=== PATIENT | male | born 1965 | race Caucasian/White ===

== ENCOUNTER → 2020-01-01 | Outpatient (CLI) | payer OTHER ==
[~2020-01-01] MED LIST: 0.9 % SODIUM CHLORIDE 10 ML DISP.SYRIN. ID ONE; CONTRAST GIVEN. MC PRN; GADOTERATE 5 MMOL/10ML VIAL. INT ART ONE; IOHEXOL 300 MG/ML 50 ML VIAL. INT ART ONE; LIDOCAINE 1% Multi-Dose 20 ML VIAL. ID ONE
--- NOTE | 2020-01-01 17:07 | KCIC ---
STUDY: MRI arthrogram of the right shoulder INDICATION: Chronic right shoulder pain. COMPARISON: None. TECHNIQUE: Multiplanar MR imaging of the right shoulder performed after the intra-articular injection of contrast material. The injection portion of the procedure is detailed in a separate report. FINDINGS: Motion degraded study despite repeat imaging attempts. AC joint: Moderate hypertrophic AC joint arthrosis. The hypertrophied capsule minimally contacts the subjacent supraspinatus. No gadolinium-containing fluid within the subacromial subdeltoid bursa. Rotator cuff: Mild supraspinatus and infraspinatus tendinosis. No high-grade or full-thickness tear. Rotator cuff muscular bulk and signal is normal. Labrum: The superior labrum is intact. Nondisplaced tear at the anterior/inferior labrum. Faint signal elevation at the base of the posterior/inferior labrum favored not a tear but instead the chondrolabral interface. Long head biceps tendon: Intact and normally located. Cartilage: Chondrosis at the anterior/inferior aspect of the glenoid with subchondral cystic change, image 12 series 8. Bones: No acute fracture or aggressive marrow signal abnormality. Miscellaneous: Unremarkable axillary soft tissues. Intact inferior glenohumeral ligament complex. Impression: 1. Intact rotator cuff and long head biceps tendon. Mild supraspinatus and infraspinatus tendinosis. 2. Nondisplaced tear at the anterior/inferior labrum. Adjacent to this tear is chondral loss with localized subchondral cystic change. The superior portion of the labrum is intact. 3. Moderate hypertrophic AC joint arthrosis. Electronically signed by: MARIAM FLORES MD (01/01/2020 5:04 PM) [id number]
--- NOTE | 2020-01-04 16:52 | KCIC ---
Study: Fluoroscopically guided arthrogram of the right shoulder for MRI Indication: Shoulder pain. SLAP tear. Contrast: 4 cc Omnipaque 300; 0.1 cc Clariscan Technique: A timeout was performed prior to beginning the procedure in order to confirm patient identity and laterality of the injection. The risks, benefits and alternatives of the procedure were discussed. Utilizing sterile technique, fluoroscopic guidance and local anesthesia with 1% lidocaine, the right shoulder joint was accessed utilizing a 22-gauge, 3.5" spinal needle. Confirmation of needle position was obtained with a small amount of radiopaque contrast. Subsequently, approximately 12 cc of a mixture containing 15 cc saline, 5 cc lidocaine and 0.1 cc Clariscan was injected. There were no immediate post procedure complications. Fluoroscopy time: 23 seconds Number of images obtained: 1 Impression: Technically successful fluoroscopic guided arthrogram of the right shoulder joint without immediate postprocedure complication. Electronically signed by: MARIAM FLORES MD (01/04/2020 4:49 PM) [id number]
== END ==
LOC: KCIC 12:35
PROVIDERS: ATTEND Family Medicine
DX: S43.431A Superior glenoid labrum lesion of right shoulder, initial encounter (principal); M19.011 Primary osteoarthritis, right shoulder; X58.XXXA Exposure to other specified factors, initial encounter; Y93.9 Activity, unspecified; Y92.89 Other specified places as the place of occurrence of the external cause; Y99.8 Other external cause status; Y93.89 Activity, other specified
CPT/HCPCS: 23350; 73222; 77002; A9575; J3490; Q9967; 73040